=== PATIENT | female | born 1960 | race Caucasian/White ===

== ENCOUNTER 2023-11-26 13:17 | Emergency (ER) | payer OTHER ==
[~2023-11-26] VITALS: Ht 157.5 cm; Wt 95.9 kg
[2023-11-26] MEDS ORDERED: HYDR12.55 PO (13:34)
[2023-11-26] MEDS ORDERED: FLUO90CA2 PO (13:34)
[2023-11-26] MEDS ORDERED: METF500T13 PO (13:34)
[2023-11-26] MEDS ORDERED: LISI2.5T9 PO (13:34)
[2023-11-26] MEDS ORDERED: OXYB5TAB14 PO (13:34)
[2023-11-26] MEDS: AUGMENTIN 875 MG TAB PO ONE (15:45)
[2023-11-26] MEDS ORDERED: AMOX875T2 PO (15:49)
[2023-11-26 15:50] VITALS: BP 140/65; TEMP 98.2; O2SAT 97
== END 2023-11-26 15:54 | disposition home or self-care (01) ==
LOC: M ED 13:17
DX: S61.237A Puncture wound without foreign body of left little finger without damage to nail, initial encounter (principal); W55.01XA Bitten by cat, initial encounter; E11.9 Type 2 diabetes mellitus without complications; I10 Essential (primary) hypertension; F32.A Depression, unspecified; F41.9 Anxiety disorder, unspecified; Z79.4 Long term (current) use of insulin; Z79.2 Long term (current) use of antibiotics; Z79.811 Long term (current) use of aromatase inhibitors; Z79.899 Other long term (current) drug therapy; Y92.009 Unspecified place in unspecified non-institutional (private) residence as the place of occurrence of the external cause; Y93.89 Activity, other specified; Y99.9 Unspecified external cause status

== ENCOUNTER → 2024-10-02 | Outpatient (REF) | payer MEDICAID, OTHER ==
[~2024-10-02] MED LIST: AMOX875T2 PO; FLUO90CA2 PO; HYDR12.55 PO; LISI2.5T9 PO; METF500T13 PO; OXYB5TAB14 PO
== END ==
LOC: M LAB REF 17:01
PROVIDERS: ATTEND Physician Assistant
DX: R30.0 Dysuria (principal)

== ENCOUNTER 2024-11-28 13:10 | Emergency (ER) | payer OTHER, MEDICAID ==
[~2024-11-28] VITALS: Ht 157.5 cm; Wt 87.1 kg
[2024-11-28 13:26] VITALS: TEMP 97.9
[2024-11-28] MEDS ORDERED: SEMA1PEN2 INJ (13:28)
[2024-11-28] MEDS ORDERED: ISOVUE-370 76% 100 ML VIAL As Ordered ONE (14:02)
[2024-11-28 14:12] LABS: BASO # 0.0 10^3/uL (0.0-0.2); BASO % 0.2 % (0.0-1.0); EOS # 0.1 10^3/uL (0.0-0.5); EOS % 0.6 % (0.0-3.0); LYMPH # 1.3 10^3/uL (1.5-5.0); LYMPH % 15.3 % (24.0-44.0); MONO # 0.5 10^3/uL (0.0-0.8); MONO % 5.8 % (2.0-8.0); NEUTROPHILS # 6.7 10^3/uL (1.5-8.5); NEUTROPHILS % 77.5 % (36.0-66.0); PLATELET COUNT, AUTOMATED 173 10^3/uL (150-450)
[2024-11-28 14:26] LABS: INR 1.01
[2024-11-28] MEDS: ACETAMINOPHEN *IV* 1,000 MG in IV 1 EA IV ONE (14:34)
[2024-11-28 14:37] LABS: ALT/SGPT 48.0 U/L (7.0-40); AST/SGOT 44.0 U/L (<34)
[2024-11-28] MEDS ORDERED: EZET10TA21 PO (14:52)
[2024-11-28] MEDS ORDERED: OXYB10TA23 PO (14:52)
[2024-11-28] MEDS ORDERED: LISI40TA10 PO (14:52)
[2024-11-28] MEDS ORDERED: FLUO40CA PO (14:52)
[2024-11-28] MEDS ORDERED: HYDR-3490 PO (14:52)
[2024-11-28] MEDS ORDERED: HOME MED LIST COMPLETE! XX SCH (14:55)
[2024-11-28] MEDS: KETOROLAC 30 MG/ML 1 ML VIAL IV ONE (15:42)
[2024-11-28 17:00] VITALS: O2SAT 96
[2024-11-28] MEDS ORDERED: METH-1165 PO (17:00)
[2024-11-28] MEDS ORDERED: KETO-204 PO (17:00)
[2024-11-28 17:15] VITALS: BP 101/57
== END 2024-11-28 17:40 | disposition home or self-care (01) ==
LOC: EDBD 13:10 → M ED 13:10
DX: S23.3XXA Sprain of ligaments of thoracic spine, initial encounter (principal); S30.1XXA Contusion of abdominal wall, initial encounter; S80.11XA Contusion of right lower leg, initial encounter; S80.12XA Contusion of left lower leg, initial encounter; V49.40XA Driver injured in collision with unspecified motor vehicles in traffic accident, initial encounter; I10 Essential (primary) hypertension; F32.9 Major depressive disorder, single episode, unspecified; E11.9 Type 2 diabetes mellitus without complications; Y92.410 Unspecified street and highway as the place of occurrence of the external cause; Y93.89 Activity, other specified; Y99.9 Unspecified external cause status; Z79.899 Other long term (current) drug therapy
CPT/HCPCS: 70450; 71260; 72125; 72128; 72131; 73564; 73590; 74177; 80047; 80076; 82150; 83605; 83690; 85025; 85610; 85730; 86850; 86900; 86901; 93041; 94760; 96374; 96375; 99285; J0131; J1885; Q9967

== ENCOUNTER → 2025-01-06 | Outpatient (CLI) | payer OTHER, MEDICAID ==
[~2025-01-06] MED LIST changes: +EZET10TA57 PO; +FLUO40CA PO; +HYDR-3490 PO; +KETO-204 PO; +LISI40TA10 PO; +METH-1165 PO; +OXYB10TA23 PO; +SEMA1PEN2 INJ
== END ==
LOC: M RAD 14:07
PROVIDERS: ATTEND Physician Assistant
DX: M25.511 Pain in right shoulder (principal)